=== PATIENT | male | born 1955 | race Caucasian/White ===

== ENCOUNTER 2017-10-03 11:18 | Emergency (ER) | payer OTHER, SELFPAY ==
[2017-10-03 11:19] VITALS: BP 139/72; PULSE 60; RESP 18; TEMP 36.2; O2SAT 96; BMI 32.1
--- NOTE | 2017-10-03 11:35 | CT_ITS ---
STUDY: CT ABDOMEN AND PELVIS WITH CONTRAST REASON FOR EXAM: Male, 62 years old. Abdominal back pain for one week. History of diverticulitis. History of cholecystectomy. RADIATION DOSAGE (If Supplied By Facility): CTDIvol = ( 19.66 ) mGy, DLP = ( 1255.76 ) mGycm TECHNIQUE: Transaxial images were obtained from the dome of the diaphragm to the symphysis pubis without oral contrast. 100 ml of Isovue 300 contrast was administered. Sagittal and coronal images were reconstructed. Individualized dose optimization techniques were used for this CT. COMPARISON: None. FINDINGS: The visualized lung bases are unremarkable. The heart is normal size. There is evidence of prior CABG procedure. Normal liver. There are surgical clips in the gallbladder fossa consistent with a prior cholecystectomy. Normal spleen. Normal pancreas. Normal bilateral adrenal glands. Normal right kidney. Normal left kidney. Normal bilateral ureters. Normal visualized stomach. Normal small intestine. Colon is redundant. There is no evidence of mass. There are no visualized diverticuli. The appendix is visualized and appears normal. There is minimal atherosclerotic changes of the distal aorta and common iliac arteries without dissection or aneurysm. Normal inferior vena cava. Normal retroperitoneum. Normal urinary bladder. Mild enlargement of the prostate. There are phleboliths in the pelvis without lymphadenopathy. No free air or free fluid is seen within the peritoneal cavity. There is an umbilical hernia of omental fat. There are diffuse degenerative changes of the visualized lumbar spine. CT/Abdomen/Pelvis W IV Cont ONLY IMPRESSION: 1. No evidence of renal, ureteral or urinary bladder abnormality. 2. Status post cholecystectomy. 3. Mildly enlarged prostate. 4. No other evidence for abdominal or pelvic abnormality. 5. Evidence of prior CABG procedure. 6. Degenerative changes of the lumbar spine. Electronically Signed: Viktor Odell DO at 12:46 EDT Tel [phone], Service support ,
--- NOTE | 2017-10-03 11:42 | ED.DCSUM_ITS ---
- ER Visit Summary Date of Service: 10/03/17 Chief Complaint: Abdominal pain History of Present Illness: The patient is a 62 M who states that on September 22 he went to his primary care physician with left lower quadrant abdominal pain. After physical exam he was placed on Cipro for diverticulitis. He states that he finished the antibiotic on September 29. He states he does not feel any better. He continues to have abdominal pain more in the suprapubic but also left lower quadrant pain. He states that it is worse when he moves such as bending over and standing up. It does not hurt much for him to have his abdomen pushed on. He also notes pain putting his arms over his head and stretching his abdomen. He denies any fevers. He denies any blood in the stool. No hematuria or urinary frequency. He went back to his primary care physician who recommended a CT scan. He was referred to the emergency department for evaluation. Physical Examination: Afebrile vital signs are stable Gen: Well-nourished well-developed Head: Normocephalic atraumatic Eyes: Perrl EOMI ENT: TMs clear no rhinorrhea moist mucous membranes Neck: Supple no lymphadenopathy no JVD nontender CVS: Regular rate rhythm no murmurs normal S1-S2 Respiratory: No distress clear to auscultation bilaterally chest nontender Abdomen: Soft no tenderness to palpation suprapubic and left lower quadrant. Nondistended normal bowel sounds no masses Back: Nontender Extremity: Nontender no edema Skin: Normal color no rash Neuro: alert orientated ?3 CN II-XII intact normal strength sensation reflexes gait cerebellar Psych: Normal affect normal mood Test Results: CBC CMP urinalysis and CT of the abdomen pelvis with IV contrast was obtained. These were essentially negative. Emergency Department Course and Treatment: Patient received IV fluids. I do not have a definitive doses for his pain. I do question whether or not this could be abdominal wall strain because it is worse with his hands above his head stretching the abdomen and worse when he goes from a bending to a upright position. I will write for a few [place] and have him reexamined over the weekend if he is worsening or early next week by his primary care physician. Impression: 1. Acute abdominal pain This note was generated with [employer] dictation software. It may contain incorrect words, spelling, and punctuation that were not noted in review of the chart prior to signing ED Disposition - Plan for ED Patient: Disposition: Home or Assisted Living Chief Complaint: Abd Pain Instructions: ED Abdominal Pain Unkn Cause Prescriptions: Hydrocodone Bitart/Apap 5-325 [[place] 5MG-325MG] 1 tab PO Q6H PRN PRN 3 Days #10 tab PRN Reason: Pain Referrals: Omero Burton DO [Primary Care Provider] - 3-5 Days
[2017-10-03 11:54] LABS: Absolute Lymphocyte Count 1.43 X10^3/ul (0.83-4.51); Absolute Neutrophil Count 3.7 X10^3/uL (2.0-7.7); Basophil# 0.11 X10^3/uL; Basophil% 1.8 % (0-1); Eosinophil# 0.17 X10^3/uL; Eosinophils% 2.7 % (0-5); Hemoglobin 14.3 g/dl (13.0-16.5); Lymphocyte # 1.43 X10^3/ul (4.0); Lymphocyte % 22.9 % (19-41); Mean Corp Hgb Conc 34.9 g/gl (32-36); Mean Corpuscular Hgb 30.6 pg (27.0-32.0); Mean Corpuscular Volume 87.6 fL (80-94); Mean Platelet Vol. 9.8 fl (6.2-12.0); Monocyte# 0.79 X10^3/uL; Monocyte% 12.6 % (0-10); Neutrophil # 3.74 X10^3/uL (2.7-7.7); Neutrophil % 59.8 % (47-70); Platelet Count 208 K/mm3 (150-450); RBC Distribution Width CV 13.6 % (11.6-14.6); RBC Distribution Width SD 43.4 fl (35.1-43.9); Red Blood Count 4.68 M/mm3 (4.6-6.2); White Blood Count 6.3 K/mm3 (4.4-11.0)
[2017-10-03 11:55] LABS: POSITIVE COUNT NO; POSITIVE DIFFERENTIAL NO; POSITIVE MORPHOLOGY NO
[2017-10-03 12:11] LABS: ALB/GLOB Ratio 1.5 RATIO (0.9-2.4); AST(SGOT) 16 U/L (15-37); Alanine Aminotransfer ALT/SGPT 28 U/L (16-61); Albumin, Serum 4.4 g/dL (3.2-5.0); Alkaline Phosphatase 73 U/L (45-117); Anion Gap 5 (5-15); BUN 12 mg/dL (7-18); Calcium,Total 9.2 mg/dL (8.5-10.1); Chloride 110 mmol/L (98-107); Creatinine, Serum 1.09 mg/dL (0.70-1.30); EST Glomerular Filtration Rate 73 mL/min (>60); Est Glom Filt Rate - Afr Amer 88 mL/min (>60); Estimated Creatinine Clearance 74.84 ml/min; Glucose 94 mg/dL (74-106); Potassium 3.9 mmol/L (3.5-5.1); Protein, Total 7.4 g/dL (6.4-8.2); Sodium Level 142 mmol/L (136-145)
[2017-10-03 12:17] LABS: Lactic Acid 0.9 mmol/L (0.4-2.0)
[2017-10-03 12:59] LABS: Bacteria 0 SEEN /hpf (None Seen); Mucous, Urine 0 SEEN /hpf (<or=2+); Red Blood Cells-Urine 0 SEEN /hpf (0-5); White Blood Cells 0 SEEN /hpf (0-5)
[2017-10-03 13:02] LABS: Color, Urine Straw (Yellow); Glucose, Dipstick Normal (Normal); Ketone-Dipstick Negative (Negative); Leukocyte Esterase-Dipstick Negative /ul (Negative); Nitrite-Dipstick Negative (Negative); Occult Blood-Urine Negative /ul (Negative); Protein-Dipstick Negative (Negative); Urine Bilirubin Dipstick Negative (Negative); Urine Clarity Clear (Clear); Urine Urobilinogen Normal (Normal)
[2017-10-03 13:29] LABS: Squamous Epithelial Cells - UA 0-5 SEEN /hpf (0-5)
[2017-10-03 14:36] VITALS: BP 147/82; PULSE 50; RESP 18; O2SAT 97
== END 2017-10-03 14:37 | disposition home or self-care (01) ==
PROVIDERS: Emergency Provider Emergency Medicine; Family Provider Family Medicine; PCP Family Medicine
DX: R10.32 Left lower quadrant pain (principal); Z87.19 Personal history of other diseases of the digestive system
CPT/HCPCS: 74177; 80053; 81001; 83605; 85025; 99283; J7030; J7040; Q9967; A4216

== ENCOUNTER → 2018-10-08 | Outpatient (CLI) | payer OTHER, SELFPAY ==
[2018-10-08 12:12] LABS: ALB/GLOB Ratio 1.3 RATIO (0.9-2.4); AST(SGOT) 14 U/L (15-37); Alanine Aminotransfer ALT/SGPT 31 U/L (16-61); Albumin, Serum 4.2 g/dL (3.2-5.0); Alkaline Phosphatase 75 U/L (45-117); Anion Gap 6 (5-15); BUN 19 mg/dL (7-18); Calcium,Total 8.8 mg/dL (8.5-10.1); Chloride 108 mmol/L (98-107); Cholesterol 120 mg/dL (200); Creatinine, Serum 1.27 mg/dL (0.70-1.30); EST Glomerular Filtration Rate 61 mL/min (>60); Est Glom Filt Rate - Afr Amer 74 mL/min (>60); Globulin 3.2 g/dL (2.2-4.2); Glucose 99 mg/dL (74-106); High Density Lipoprotein 31 mg/dL; Potassium 3.9 mmol/L (3.5-5.1); Protein, Total 7.4 g/dL (6.4-8.2); Sodium Level 140 mmol/L (136-145); Triglycerides 202 mg/dL; Very Low Density Lipoprotein 40 mg/dL (5-40)
== END | disposition home or self-care (01) ==
PROVIDERS: Family Provider Family Medicine; PCP Family Medicine; Referring Provider Family Medicine; Visit Provider Family Medicine
DX: E78.00 Pure hypercholesterolemia, unspecified (principal)
CPT/HCPCS: 36415; 80053; 80061

== ENCOUNTER 2019-04-08 20:38 | Emergency (ER) | payer OTHER, SELFPAY ==
[2019-04-08 20:39] VITALS: BP 141/89; PULSE 76; RESP 18; TEMP 36.7; O2SAT 95; BMI 32.8
--- NOTE | 2019-04-08 22:35 | ED.DCSUM_ITS ---
History of Present Illness Chief Complaint: Laceration Narrative: Patient is a 63-year-old male who presents with a left leg laceration. He was carrying a trash bag out which she did not realize had broken glass in it. The bag hit against his left leg. This occurred about 2 hours ago. He complains of sharp pain with bearing weight or ambulation. No numbness tingling or weakness. He is uncertain of his last immunization. Past Medical History - Allergies and Home Meds Allergies/Adverse Reactions: Allergies No Known Allergies Allergy (Verified 04/08/19 20:42) Primary Care Physician: NOT,DEFINED [NON-STAFF] - Past Medical History: - - Coronary artery disease, hypertension, hyperlipidemia Smoking Status: Former smoker Review of Systems All systems negative except as indicated General: Denies: Fever Cardiovascular: Denies: Chest pain Respiratory: Denies: Dyspnea Physical Exam Vital Signs/Narrative: Vital Signs Temp Pulse Resp BP Pulse Ox 04/08/19 20:39 98.0 F 76 18 141/89 H 95 Inital Vital Signs reviewed: Yes General: Well nourished Head: Normocephalic Eyes: EOMI ENT: Moist mucous membranes Cardiovascular: Regular rate Respiratory: No distress Extremities: - - Laceration to the medial and distal left leg just proximal to the ankle he has an easily palpable dorsalis pedis pulse with brisk capillary refill and normal sensation light touch a shard of glass was visualized and re moved at the time of initial exam Diagnostic/Tx/Re-eval - Medical Decision Making Large shard of glass was noted on initial exam and removed. Patient was then sent for x-rays to rule out any additional retained foreign body. X-ray do show a glass foreign body as well as a small linear sliver adjacent to the larger foreign body. Patient's laceration was anesthetized with 5 cc of local 1% lidocaine. The large foreign body was grasped with curved hemostats however due to the angle was unable to be removed through the laceration as the margins of the foreign body extended beyond this and the orientation that it was being removed. Therefore the laceration was extended superiorly 1 cm using a #10 blade. The foreign body was then easily removed. Some clot was removed as well. Laceration was closed with a total of 5 simple interrupted 4?0 nonabsorbable sutures the second smaller linear foreign body was never definitely visualized so repeat x-ray was obtained and it is no longer seen. Given the depth of laceration I did place the patient on prophylactic antibiotics, he was prescribed Keflex. He was instructed on local wound care. He was advised on suture removal and does understand to return for new or worsening symptoms including any sign of infection. ED Disposition - Plan for ED Patient: Disposition: Home or Assisted Living Diagnosis: Leg laceration, History of retained foreign body fully removed Instructions: LACERATION, Extrem (Suture, Staple or Tape) Prescriptions: Cephalexin [Keflex] 500 mg PO Q6 #40 cap Prescription Printed Referrals: NOT,DEFINED [NON-STAFF] -
--- NOTE | 2019-04-08 22:55 | RAD_ITS ---
STUDY: X-RAY - LEFT ANKLE REASON FOR EXAM: Male, 63 years old. Glass in leg. TECHNIQUE: 2 view(s) of the ankle. COMPARISON: None. FINDINGS: Normal visualized distal tibia and fibula. Normal medial and lateral malleoli. Normal tibiotalar articulation and ankle mortise. Normal visualized talus and calcaneus. The visualized subtalar, talonavicular, calcaneocuboid and tarsal articulations are normal. There is a triangular-shaped foreign body consistent with glass overlying the posterior lateral lower leg soft tissues with adjacent small linear glass foreign body. RAD/Ankle 2 Views IMPRESSION: Findings consistent with distal leg posterior lateral soft tissue glass foreign body as described above with small linear sliver adjacent to the larger foreign body. Electronically Signed: Tashi Uribe DO at 23:07 EST , Service support ,
--- NOTE | 2019-04-08 23:30 | RAD_ITS ---
STUDY: X-RAY - LEFT ANKLE REASON FOR EXAM: Male, 63 years old. Removal of foreign body. TECHNIQUE: 2 view(s) of the ankle. COMPARISON: Radiographs of earlier today. FINDINGS: No evidence of residual foreign body. Soft tissue swelling seen at the site of previous laceration. No fracture or dislocation. Stable appearance of vascular-type clips along the medial calf. RAD/Ankle 2 Views IMPRESSION: No evidence of residual foreign body. Electronically Signed: Layton Silva MD at 23:50 EST , Service support ,
[2019-04-08] MEDS: Diphth,Pertuss(Acell),Tet Vac 0.5 ML Vial IM (23:40)
[2019-04-09 00:06] VITALS: PULSE 88; RESP 16; O2SAT 98
== END 2019-04-09 00:08 | disposition home or self-care (01) ==
PROVIDERS: Emergency Provider Emergency Medicine
DX: S81.822A Laceration with foreign body, left lower leg, initial encounter (principal); W25.XXXA Contact with sharp glass, initial encounter; Y93.9 Activity, unspecified; Y92.9 Unspecified place or not applicable; I25.10 Atherosclerotic heart disease of native coronary artery without angina pectoris; I10 Essential (primary) hypertension; E78.5 Hyperlipidemia, unspecified; Z79.82 Long term (current) use of aspirin; Z79.899 Other long term (current) drug therapy; Z87.891 Personal history of nicotine dependence
CPT/HCPCS: 10120; 73600; 90471; 90715; 99285

== ENCOUNTER → 2022-12-24 | Outpatient (CLI) | payer MEDICARE, SELFPAY ==
--- NOTE | 2022-12-24 07:59 | RAD_ITS ---
STUDY: X-RAY - ESOPHAGUS (BARIUM SWALLOW) WITH FLUOROSCOPY REASON FOR EXAM: Male, 67 years old. DYSPHAGIA TECHNIQUE: 18 view(s) of the esophagus were obtained following swallowing of barium. FLUOROSCOPY TIME (if supplied): (33 seconds) minutes/seconds. 17.76 mGy COMPARISON: None. FINDINGS: There is no demonstrated esophageal foreign body. There is no demonstrated stricture or mucosal abnormality. Normal gastroesophageal junction, without a demonstrated hiatal hernia. The patient ingested a 12 mm tablet of barium without any difficulty. Normal visualized aortic arch and descending thoracic aorta. Normal visualized pulmonary parenchyma. Normal visualized osseous structures of the thorax. RAD/Esophagus Dual Contrast IMPRESSION: Normal plain film x-ray examination (barium swallow) of the esophagus. Electronically Signed: Khai Mi MD at 9:26 EDT ,
== END | disposition home or self-care (01) ==
PROVIDERS: Referring Provider Otolaryngology Otolaryngology/Facial Plastic Surgery; Visit Provider Otolaryngology Otolaryngology/Facial Plastic Surgery
DX: R13.14 Dysphagia, pharyngoesophageal phase (principal)
CPT/HCPCS: 74221